=== PATIENT | female | born 1950 | race Caucasian/White ===

== ENCOUNTER 2016-11-13 09:55 | Inpatient (IN) | payer MEDICARE, BC ==
[2016-11-13] VITALS (14 sets, daily range): BP systolic 128–202; BP diastolic 61–111; PULSE 0–92; RESP 13–24; TEMP 98.2–98.4; O2SAT 97–100
[~2016-11-13] VITALS: Ht 167.6 cm; Wt 68.0 kg
[2016-11-13 10:18] LABS: AUTOMATED NEUTROPHIL # 6.5 TH/MM3 (1.8-7.7); BASOPHIL # 0.1 TH/MM3 (0-0.2); BASOPHIL % 1.4 % (0.0-2.0); EOSINOPHIL # 0.1 TH/MM3 (0-0.4); EOSINOPHIL % 0.8 % (0.0-4.0); HEMATOCRIT 35.9 % (35.0-46.0); HEMO FLAGS DIFF FINAL; LYMPH % 29.3 % (9.0-44.0); LYMPHOCYTE # 3.1 TH/MM3 (1.0-4.8); MEAN CELL VOLUME 92.3 FL (80.0-100.0); MEAN CORPUSCULAR HGB CONC 33.5 % (32.0-36.0); MONO % 5.8 % (0.0-8.0); NEUT % 62.7 % (16.0-70.0); PLATELET COUNT 314 TH/MM3 (150-450); RED BLOOD COUNT 3.89 MIL/MM3 (4.00-5.30); RED CELL DISTRIBUTION WIDTH 13.1 % (11.6-17.2); WHITE BLOOD COUNT 10.4 TH/MM3 (4.0-11.0)
[2016-11-13] MEDS ORDERED: ZANT150T2 PO (10:20)
[2016-11-13] MEDS ORDERED: ASPI81CH37 CHEW (10:20)
[2016-11-13 10:28] LABS: CHLORIDE 107 MEQ/L (98-107); POTASSIUM 3.7 MEQ/L (3.5-5.1); SODIUM (NA) 140 MEQ/L (136-145)
[2016-11-13] MEDS ORDERED: niCARdipine INJ 25 MG in SODIUM CHLOR 0.9% 250 ML INJ 240 ML IV ONE (10:30)
[2016-11-13 10:32] LABS: ANION GAP 8 MEQ/L (5-15); APTT (PATIENT) 26.4 SEC (24.3-30.1); BICARBONATE 25.4 MEQ/L (21.0-32.0); BLOOD UREA NITROGEN 15 MG/DL (7-18)
--- NOTE | 2016-11-13 10:34 | RADRPT ---
EXAM DATE/TIME: 11/13/2016 10:13 [facility] COMPARISON: No previous studies available for comparison. INDICATIONS : Numbness, face left arm, and throat. RADIATION DOSE: 64.14 CTDIvol (mGy) MEDICAL HISTORY : None SURGICAL HISTORY : None. ENCOUNTER: Initial ACUITY: 4 - 6 days PAIN SCALE: 0/10 LOCATION: cranial TECHNIQUE: Multiple contiguous axial images were obtained of the head. Using automated exposure control and adj ustment of the mA and/or kV according to patient size, radiation dose was kept as low as reasonably a chievable to obtain optimal diagnostic quality images. DICOM format image data is available electro nically for review and comparison. FINDINGS: The examination demonstrates a focal area of acute intraparenchymal hemorrhage involving the watershe d distribution of the right frontal lobe. There is surrounding edema. There is minimal mass effect. The ventricles are normal in size and configuration. No extra-axial hemorrhage is seen. The appearance of the posterior fossa is unremarkable. The osseous structures of the skull are intact. CONCLUSION: 1. Focal area of acute intraparenchymal hemorrhage in the right frontal lobe measuring 1.3 x 1.4 cm. There is surrounding vasogenic edema. MRI imaging of the brain with contrast is warranted to exclude an underlying mass. Fabricio Lara MD on November 13, 2016 at 10:31 Board Certified Radiologist. This report was verified electronically.
[2016-11-13 10:35] LABS: ALT (GPT) 32 U/L (10-53); AST (GOT) 20 U/L (15-37); GLOMERULAR FILTRATION RATE 55 ML/MIN (>89)
[2016-11-13 10:36] LABS: INDIRECT BILIRUBIN 0.2 MG/DL (0.0-0.8); TOTAL BILIRUBIN ADULT 0.3 MG/DL (0.2-1.0)
[2016-11-13 10:38] LABS: ALKALINE PHOSPHATASE 95 U/L (45-117)
[2016-11-13 10:52] LABS: CREATINE KINASE 65 U/L (26-192)
--- NOTE | 2016-11-13 10:52 | PD ---
HPI Chief Complaint: Numbness/Tingling Time Seen by Provider: 10:01 Travel History International Travel<30 days: No Contact w/Intl Traveler<30days: No Traveled to known affect area: No History of Present Illness HPI Patient is a 66 year old female who comes in complaining of numbness to her left arm and the right side of her mouth and neck. She says this started about 20 minutes prior to arrival. She says this happened Tuesday and she went to see her PMD who told her she was likely having a TIA and ordered some outpatient testing for her. She says when it happened again this morning, she was concerned because her neck felt numb, which was different. She denies feeling any weakness. She denies any symptoms in her legs. She does not take any blood thinners. She denies any recent head trauma. She denies chest pain or SOB. PFSH Past Medical History Diminished Hearing: No GERD: Yes Influenza Vaccination: No ?: Not Past Surgical History Hysterectomy: Yes Social History Alcohol Use: Yes ([facility]) Tobacco Use: No Allergies-Medications (Allergen,Severity, Reaction): Coded Allergies: No Known Allergies (Unverified , 11/13/16) Reported Meds & Prescriptions Reported Meds & Active Scripts Active Reported Zantac (Ranitidine HCl) 150 Mg Tab 150 Mg PO BID Aspirin Low Dose (Aspirin) 81 Mg Chew 81 Mg CHEW DAILY Review of Systems Except as stated in HPI: all other systems reviewed are Neg General / Constitutional: No: Fever, Chills Eyes: No: Blurred Vision HENT: No: Headaches, Lightheadedness Cardiovascular: No: Chest Pain or Discomfort Respiratory: No: Shortness of Breath Gastrointestinal: No: Nausea, Vomiting Genitourinary: No: Dysuria Skin: No Rash, No Change in Pigmentation Neurologic: Positive: Paresthesia, Sensory Disturbance, No: Weakness Physical Exam Narrative GENERAL: Awake and alert, in no acute distress. SKIN: Focused skin assessment warm/dry. HEAD: Atraumatic. Normocephalic. EYES: Pupils equal and round and reactive. No scleral icterus. EOMI. ENT: Mucous membranes pink and moist. NECK: Trachea midline. No JVD. CARDIOVASCULAR: Regular rate and rhythm. No murmur appreciated. RESPIRATORY: No accessory muscle use. Clear to auscultation. Breath sounds equal bilaterally. GASTROINTESTINAL: Abdomen soft, non-tender, nondistended. Hepatic and splenic margins not palpable. MUSCULOSKELETAL: No obvious deformities. No clubbing. No cyanosis. No edema. NEUROLOGICAL: Awake and alert. No obvious cranial nerve deficits. Motor grossly within normal limits. Normal speech. Sensation intact. PSYCHIATRIC: Appropriate mood and affect; insight and judgment normal. Data Data Last Documented VS Vital Signs Date Time Temp Pulse Resp B/P (MAP) Pulse Ox O2 Delivery O2 Flow Rate FiO2 11/13/16 10:25 98.4 64 18 187/71 (109) Room Air 98 11/13/16 10:02 98 Orders Orders Prothrombin Time / Inr (Pt) (11/13/16 10:01) Act Partial Throm Time (Ptt) (11/13/16 10:01) Complete Blood Count With Diff (11/13/16 10:01) Basic Metabolic Panel (Bmp) (11/13/16 10:01) Creatine Kinase (Cpk) (11/13/16 10:01) Troponin I (11/13/16 10:01) Ua Includes Microscopic (11/13/16 10:01) Type And Screen (11/13/16 10:01) Ct Brain W/O Iv Contrast(Rout) (11/13/16 ) Chest, Single Ap (11/13/16 ) Electrocardiogram (11/13/16 ) Blood Glucose (11/13/16 10:01) Ecg Monitoring (11/13/16 10:01) Iv Access Insert/Monitor (11/13/16 10:01) Oximetry (11/13/16 10:01) Hepatic Functional Panel (11/13/16 10:01) Nicardipine Inj (Cardene Inj) (11/13/16 10:30) Labs Laboratory Tests Test 11/13/16 10:00 White Blood Count 10.4 TH/MM3 Red Blood Count 3.89 MIL/MM3 Hemoglobin 12.0 GM/DL Hematocrit 35.9 % Mean Corpuscular Volume 92.3 FL Mean Corpuscular Hemoglobin 31.0 PG Mean Corpuscular Hemoglobin Concent 33.5 % Red Cell Distribution Width 13.1 % Platelet Count 314 TH/MM3 Mean Platelet Volume 8.2 FL Neutrophils (%) (Auto) 62.7 % Lymphocytes (%) (Auto) 29.3 % Monocytes (%) (Auto) 5.8 % Eosinophils (%) (Auto) 0.8 % Basophils (%) (Auto) 1.4 % Neutrophils # (Auto) 6.5 TH/MM3 Lymphocytes # (Auto) 3.1 TH/MM3 Monocytes # (Auto) 0.6 TH/MM3 Eosinophils # (Auto) 0.1 TH/MM3 Basophils # (Auto) 0.1 TH/MM3 CBC Comment DIFF FINAL Differential Comment Prothrombin Time 11.0 SEC Prothromb Time International Ratio 1.0 RATIO Activated Partial Thromboplast Time 26.4 SEC Blood Urea Nitrogen 15 MG/DL Creatinine 1.00 MG/DL Random Glucose 104 MG/DL Total Protein 7.6 GM/DL Albumin 3.5 GM/DL Calcium Level 8.3 MG/DL Aspartate Amino Transf (AST/SGOT) 20 U/L Alanine Aminotransferase (ALT/SGPT) 32 U/L Total Bilirubin 0.3 MG/DL Direct Bilirubin 0.1 MG/DL Sodium Level 140 MEQ/L Potassium Level 3.7 MEQ/L Chloride Level 107 MEQ/L Carbon Dioxide Level 25.4 MEQ/L Anion Gap 8 MEQ/L Estimat Glomerular Filtration Rate 55 ML/MIN Indirect Bilirubin 0.2 MG/DL [facility] Medical Decision Making Medical Screen Exam Complete: Yes Emergency Medical Condition: Yes Medical Record Reviewed: Yes Interpretation(s) ECG shows NSR at [address] elevation or depression, normal intervals. Differential Diagnosis TIA vs migraine vs electrolyte abnormalities vs ICH Narrative Course Patient is a 66 year old female who comes in complaining of numbness to the left side of her face and arm. At the time of exam, her symptoms have resolved , no abnormalities seen on neurologic exam. IV established, labs sent. CT head performed shows an intraparenchymal bleed with surrounding edema in the right frontal lobe. Patient started on Nicardipine drip for blood pressure control. She is still alert, oriented, without deficit. Dr. Fagan from neurology consulted, suggests BP control, NSGY consult and transfer to the [facility]. Dr. Rivera from NSGY consulted. Patient to be admitted to ICU at the [facility]. Diagnosis Primary Impression: Intraparenchymal hemorrhage of brain Admitting Information Admitting Physician Requests: Admit Condition: Stable Nupur Meraz MD Nov 13, 2016 10:52
[2016-11-13 10:53] LABS: BLOOD, URINE SMALL (NEG); GLUCOSE,URINE NEG (NEG); KETONE, URINE NEG (NEG); NITRITE,URINE NEG (NEG)
[2016-11-13] MEDS ORDERED: DEXTROSE 50% IN WATER 50 ML VIAL(D50) IV PUSH PRN (11:00)
[2016-11-13] MEDS ORDERED: POTASSIUM PHOSPHATE MONOBASIC 500 MG TAB PO/TUBE PRN (11:00)
[2016-11-13] MEDS ORDERED: POTASSIUM CHLOR 20 MEQ PREMIX 100 ML IV PRN ×2 (11:00)
[2016-11-13] MEDS ORDERED: LABETALOL HCL 100 MG/20 ML VIAL IV PUSH PRN ×2 (11:00→17:00)
[2016-11-13] MEDS ORDERED: hydrALAZINE HCL 20 MG/ML VIAL IV PUSH PRN (11:00)
[2016-11-13] MEDS ORDERED: POTASSIUM PHOSPHATE MONOBASIC 500 MG TAB PO PRN (11:00)
[2016-11-13] MEDS ORDERED: LACTULOSE SYRUP 20 GM/30 ML CUP PO PRN (11:00)
[2016-11-13] MEDS ORDERED: MAGNESIUM SULFATE INJ 4 GM in SODIUM CHLORIDE 0.9% INJ 92 ML IV PRN (11:00)
[2016-11-13] MEDS ORDERED: MISCELLANEOUS NURSING INFORMATION XX SCH (11:00)
[2016-11-13] MEDS ORDERED: POTASSIUM CHLOR 40 MEQ PREMIX 100 ML IV PRN ×2 (11:00)
[2016-11-13] MEDS ORDERED: MAGNESIUM HYDROXIDE SUSP 30 ML CUP PO PRN (11:00)
[2016-11-13] MEDS ORDERED: MAGNESIUM OXIDE 400 MG TAB PO PRN (11:00)
[2016-11-13] MEDS ORDERED: CHLORHEXIDINE GLUCONATE 2 % 1 PACK (2 CLOTHS) TOP PRN (11:00)
[2016-11-13] MEDS ORDERED: MAGNESIUM SULFATE INJ 2 GM in SODIUM CHLORIDE 0.9% INJ 96 ML IV PRN (11:00)
[2016-11-13] MEDS ORDERED: BISACODYL 10 MG SUPP RECTAL PRN (11:00)
[2016-11-13] MEDS ORDERED: ACETAMINOPHEN 325 MG TAB PO PRN (11:00)
[2016-11-13] MEDS ORDERED: SODIUM PHOSPHATE INJ 30 MMOL in SODIUM CHLOR 0.9% 250 ML INJ 240 ML IV PRN (11:00)
[2016-11-13] MEDS ORDERED: ONDANSETRON HCL 4 MG/2 ML VIAL IV PUSH PRN (11:00)
[2016-11-13] MEDS ORDERED: RESP: ALBUTEROL 2.5 MG/IPRATROPIUM 0.5 MG NEB (PRN) INH (11:00)
[2016-11-13] MEDS ORDERED: POTASSIUM PHOSPHATE INJ 30 MMOL in SODIUM CHLOR 0.9% 250 ML INJ 250 ML IV PRN (11:00)
[2016-11-13] MEDS ORDERED: SENNOSIDES 8.6 MG TAB PO PRN (11:00)
[2016-11-13] MEDS ORDERED: SODIUM CHLORIDE 0.9% FLUSH 10 ML FLUSH IV FLUSH PRN (11:00)
--- NOTE | 2016-11-13 11:02 | RADRPT ---
EXAM DATE/TIME: 11/13/2016 10:46 [facility] COMPARISON: No previous studies available for comparison. INDICATIONS : Left side arm, face, and neck numbness, cough MEDICAL HISTORY : None. SURGICAL HISTORY : None. ENCOUNTER: Initial ACUITY: 1 day PAIN SCORE: 0/10 LOCATION: Bilateral chest FINDINGS: The heart is normal in size. There are chronic appearing interstitial changes in the lung bases. The lungs are otherwise clear. The visualized bony structures are grossly intact. CONCLUSION: 1. Chronic interstitial changes in the lung bases. 2. No acute abnormality identified. Fabricio Lara MD on November 13, 2016 at 11:00 Board Certified Radiologist. This report was verified electronically.
[2016-11-13 11:10] LABS: METHOD OF COLLECTION CATH; URINE COLOR STRAW (YELLW/STRAW)
[2016-11-13 11:11] LABS: SQUAMOUS EPITHELIAL CELL URINE 0-5 /hpf (0-5); WBC, URINE 0-2 /hpf (0-5)
[2016-11-13] MEDS: INSULIN NovoLIN REGULAR SUPPLEMENTAL SCALE SQ SCH ×2 (11:52→18:00)
[2016-11-13] MEDS: SODIUM CHLOR 0.9% 1000 ML INJ 1,000 ML IV SCH (12:49)
--- NOTE | 2016-11-13 14:18 | EKG ---
Date Performed: 11/13/2016 Time Performed: 10:06:11 PTAGE: 66 years EKG: Sinus rhythm NORMAL ECG NO PREVIOUS TRACING DOCTOR: Meng Atkins Interpretating Date/Time 11/13/2016 14:14:28
[2016-11-13] MEDS ORDERED: GADODIAMIDE PF 287 MG/ML 5 ML VIAL (for RAD MRI) IVCONTRAST ONE (16:17)
--- NOTE | 2016-11-13 16:30 | RADRPT ---
EXAM DATE/TIME: 11/13/2016 15:42 [facility] COMPARISON: CT BRAIN W/O CONTRAST, November 13, 2016, 10:13. INDICATIONS : Hemorrhage. CONTRAST: 14 cc Omniscan (gadodiamide) IV MEDICAL HISTORY : Carcinoma, ovarian. Hypertension. SURGICAL HISTORY : Hysterectomy. Umbilical hernia repair. Orthopaedic. ENCOUNTER: Initial ACUITY: 1 day PAIN SCORE: 0/10 LOCATION: cranial TECHNIQUE: Multiplanar, multisequence MRI of the brain was performed both prior to and following the administrat ion of paramagnetic contrast. FINDINGS: Diffusion weighted images demonstrate no evidence for acute infarction. There is an area of foca l decreased T2/increased T1 signal in the right frontal lobe on axial image 15 measuring 1.5 x 1.6 cm in AP and transverse dimension, with a surrounding area of high T2 signal and decreased T1 signal no chhaya consistent with edema. This is consistent with a focal intraparenchymal hemorrhage. Following int ravenous contrast administration, there is no appreciable internal enhancement to suggest a vascular mass. There is a small amount of subarachnoid hemorrhage along the right for total convexity. CONCLUSION: Right frontal hematoma with a small amount of surrounding edema and subarachnoid hemorrhage. Omar Reno MD on November 13, 2016 at 16:25 Board Certified Radiologist. This report was verified electronically.
--- NOTE | 2016-11-13 16:47 | HHI.HP ---
[facility] Service Critical Care Medicine Primary Care Physician Fab Reynolds MD Admission Diagnosis Intraparenchymal bleed Diagnosis: Chief Complaint: Numbness left deltoid region. Travel History International Travel<30 Days: No Contact w/Intl Traveler <30 Da: No Traveled to Known Affected Are: No History of Present Illness 66 y/o otherwise healthy woman developed numbness over the left deltoid region about 4 days ago which resolved after about 30 mins. She was prescribed ASA and scheduled for studies. Her PMD felt this was a TIA and it sure sounds like one. The symptoms have recurred daily and she underwent a Head CT today at [facility] revealing a well circumscribed right frontal lobe hemorrhage with surrounding vasogenic edema. She was transported to [facility] for MRI and admission. I met her on her arrival to the [facility]. Review of Systems Constitutional: DENIES: Diaphoretic episodes, Fatigue, Fever, Weight gain, Weight loss, Chills, Dizziness, Change in appetite, Night Sweats Endocrine: DENIES: Abnorml menstrual pattern, Heat/cold intolerance, Polydipsia , Polyuria, Polyphagia Eyes: DENIES: Blurred vision, Diplopia, Eye inflammation, Eye pain, Vision loss , Photosensitivity, Double Vision Ears, nose, mouth, throat: DENIES: Tinnitus, Hearing loss, Vertigo, Nasal discharge, Oral lesions, Throat pain, Hoarseness, Ear Pain, Running Nose, Epistaxis, Sinus Pain, Toothache, Odynophagia Respiratory: DENIES: Apneas, Cough, Snoring, Wheezing, Hemoptysis, Sputum production, Shortness of breath Cardiovascular: DENIES: Chest pain, Palpitations, Syncope, Dyspnea on Exertion , PND, Lower Extremity Edema, Orthopnea, Claudication Musculoskeletal: DENIES: Joint pain, Muscle aches, Stiffness, Joint Swelling, Back pain, Neck pain Integumentary: DENIES: Abnormal pigmentation, Pruritus, Rash, Nail changes, Breast masses, Breast skin changes, Nipple discharge Immunologic/allergic: DENIES: Eczema, Urticaria Neurologic: COMPLAINS OF: Localized weakness Psychiatric: DENIES: Anxiety, Confusion, Mood changes, Depression, Hallucinations, Agitation, Suicidal Ideation, Homicidal Ideation, Delusions Past Family Social History Allergies: Coded Allergies: No Known Allergies (Unverified , 11/13/16) Past Medical History Past Medical History Diminished Hearing: No GERD: Yes Influenza Vaccination: No ?: Not Past Surgical History Hysterectomy: Yes Social History Alcohol Use: Yes (occ) Tobacco Use: No Allergies-Medications Allergies-Medications (Allergen,Severity, Reaction): Coded Allergies: No Known Allergies (Unverified , 11/13/16) Reported Meds & Prescriptions Reported Meds & Active Scripts Active Reported Zantac (Ranitidine HCl) 150 Mg Tab 150 Mg PO BID Aspirin Low Dose (Aspirin) 81 Mg Chew 81 Mg CHEW DAILY Physical Exam Vital Signs Vital Signs Date Time Temp Pulse Resp B/P (MAP) Pulse Ox O2 Delivery O2 Flow Rate FiO2 11/13/16 14:01 78 151/69 11/13/16 14:00 100 Room Air 11/13/16 14:00 85 11/13/16 14:00 98.3 85 13 171/88 (115) 100 11/13/16 13:18 11/13/16 13:08 90 18 140/65 (90) 98 Room Air 11/13/16 12:23 79 18 137/61 (86) 98 11/13/16 12:14 177/81 (113) 11/13/16 11:59 79 18 163/72 (102) 98 Room Air 11/13/16 11:30 169/111 (130) 11/13/16 11:15 163/86 (111) 11/13/16 11:00 187/84 (118) 11/13/16 10:30 76 178/88 11/13/16 10:25 98.4 64 18 187/71 (109) Room Air 98 11/13/16 10:02 80 18 202/107 (138) 98 Physical Exam Gen: Healthy appearing woman Head: Atraumatic. Neck: Supple, airway widely patent. Lungs: Clear, no adventitious sounds. Heart: NL S1S2, RRR. No JVD. Abdomen: Benign, soft, no guarding, BS active. Extremities: Warm, well perfused. Neuro: O X 3, alert, cooperative. Speech clear. Right handed. Motor grossly normal 4 limbs. Numb to soft touch left lateral neck. ALBARO. Tongue protrusion midline. EOMs intact. Smile, grimace symmetrical. Shoulder shrug symmetrical. Laboratory Laboratory Tests Test 11/13/16 10:00 11/13/16 10:40 White Blood Count 10.4 Red Blood Count 3.89 Hemoglobin 12.0 Hematocrit 35.9 Mean Corpuscular Volume 92.3 Mean Corpuscular Hemoglobin 31.0 Mean Corpuscular Hemoglobin Concent 33.5 Red Cell Distribution Width 13.1 Platelet Count 314 Mean Platelet Volume 8.2 Neutrophils (%) (Auto) 62.7 Lymphocytes (%) (Auto) 29.3 Monocytes (%) (Auto) 5.8 Eosinophils (%) (Auto) 0.8 Basophils (%) (Auto) 1.4 Neutrophils # (Auto) 6.5 Lymphocytes # (Auto) 3.1 Monocytes # (Auto) 0.6 Eosinophils # (Auto) 0.1 Basophils # (Auto) 0.1 CBC Comment DIFF FINAL Differential Comment Prothrombin Time 11.0 Prothromb Time International Ratio 1.0 Activated Partial Thromboplast Time 26.4 Blood Urea Nitrogen 15 Creatinine 1.00 Random Glucose 104 Total Protein 7.6 Albumin 3.5 Calcium Level 8.3 Alkaline Phosphatase 95 Aspartate Amino Transf (AST/SGOT) 20 Alanine Aminotransferase (ALT/SGPT) 32 Total Bilirubin 0.3 Direct Bilirubin 0.1 Sodium Level 140 Potassium Level 3.7 Chloride Level 107 Carbon Dioxide Level 25.4 Anion Gap 8 Estimat Glomerular Filtration Rate 55 Indirect Bilirubin 0.2 Total Creatine Kinase 65 Troponin I LESS THAN 0.02 Urine Collection Type CATH Urine Color STRAW Urine Turbidity CLEAR Urine pH 6.0 Urine Specific [place] 1.005 Urine Protein NEG Urine Glucose (UA) NEG Urine Ketones NEG Urine Occult Blood SMALL Urine Nitrite NEG Urine Bilirubin NEG Urine Leukocyte Esterase TRACE Urine WBC 0-2 Urine Squamous Epithelial Cells 0-5 Result Diagram: 11/13/16 1000 11/13/16 1000 Caprini VTE Risk Assessment Caprini VTE Risk Assessment: Mod/High Risk (score >= 2) Caprini Risk Assessment Model Point Value = 1 Point Value = 2 Point Value = 3 Point Value = 5 Age 41-60 Minor surgery BMI > 25 kg/m2 Swollen legs Varicose veins or History of unexplained or recurrent spontaneous Oral contraceptives or hormone replacement Sepsis (< 1 month) Serious lung disease, including pneumonia (< 1 month) Abnormal pulmonary function Acute myocardial infarction Congestive heart failure (< 1 month) History of inflammatory bowel disease Medical patient at bed rest Age 61-74 Arthroscopic surgery Major open surgery (> 45 min) Laparoscopic surgery (> 45 min) Malignancy Confined to bed (> 72 hours) Immobilizing plaster cast Central venous access Age >= 75 History of VTE Family history of VTE Factor V Leiden Prothrombin [id number] Lupus anticoagulant Anticardiolipin antibodies Elevated serum homocysteine Heparin-induced thrombocytopenia Other congenital or acquired thrombophilia Stroke (< 1 month) Elective arthroplasty Hip, pelvis, or leg fracture Acute spinal cord injury (< 1 month) Prophylaxis Regimen Total Risk Factor Score Risk Level Prophylaxis Regimen 0-1 Low Early ambulation 2 Moderate Order ONE of the following: *Sequential Compression Device (SCD) *Heparin 5000 units SQ BID 3-4 Higher Order ONE of the following medications: *Heparin 5000 units SQ TID *Enoxaparin/Lovenox 40 mg SQ daily (WT < 150 kg, CrCl > 30 mL/min) *Enoxaparin/Lovenox 30 mg SQ daily (WT < 150 kg, CrCl > 10-29 mL/min) *Enoxaparin/Lovenox 30 mg SQ BID (WT < 150 kg, CrCl > 30 mL/min) AND/OR *Sequential Compression Device (SCD) 5 or more Highest Order ONE of the following medications: *Heparin 5000 units SQ TID (Preferred with Epidurals) *Enoxaparin/Lovenox 40 mg SQ daily (WT < 150 kg, CrCl > 30 mL/min) *Enoxaparin/Lovenox 30 mg SQ daily (WT < 150 kg, CrCl > 10-29 mL/min) *Enoxaparin/Lovenox 30 mg SQ BID (WT < 150 kg, CrCl > 30 mL/min) AND *Sequential Compression Device (SCD) Assessment and Plan Assessment and Plan Assessment: 1. Stuttering pattern of decreased sensation left arm. 2. 1.5 X 1.5 CM hemorrhage right frontal lobe. 3.Hypertension. Plan: 1. BP control with cardene and iv labetalol. 2. Start low dose lopressor PO scheduled. 3. No chemical DVT px. 4. SCDs. 5. Neuro checks. 6. Check Mag. 7. Neurosurgery consult. Overall impression: Right frontal lobe hemorrhage, well circumscribed, with surrounding vasogenic edema. Sherman Call MD Nov 13, 2016 16:47
[2016-11-13] MEDS: hydrALAZINE HCL 20 MG/ML VIAL IV PUSH PRN (17:25)
--- NOTE | 2016-11-13 17:49 | PD.CONS ---
History of Present Illness Service Neurosurgery Consult Requested By Emergency room-Dr. Nupur Meraz Reason for Consult Intracranial hemorrhage Primary Care Physician Fab Reynolds MD Diagnoses: History of Present Illness Pleasant 66-year-old female presented to the emergency room today with complaint of left facial and upper extremity numbness which started approximately 20 minutes prior to her arrival in the emergency room. She had a similar event this past Tuesday involving the left upper extremity, and was seen by her primary care physician who diagnosed possible TIA and ordered additional outpatient studies. The has no complaint of significant headache, blurred vision, diplopia, speech difficulty, confusion, memory loss. No pain weakness numbness paresthesias in the right upper or lower extremity. No dizziness or vertigo. No nausea or vomiting. Review of Systems Constitutional: DENIES: Fever, Dizziness Eyes: DENIES: Blurred vision, Diplopia Ears, nose, mouth, throat: DENIES: Vertigo Respiratory: DENIES: Shortness of breath Cardiovascular: DENIES: Chest pain, Palpitations Gastrointestinal: COMPLAINS OF: Nausea, DENIES: Abdominal pain, Vomiting Musculoskeletal: DENIES: Joint pain, Muscle aches, Neck pain Hematologic/lymphatic: DENIES: Bruising Neurologic: COMPLAINS OF: Paresthesias, DENIES: Abnormal gait, Headache, Speech Problems Psychiatric: DENIES: Anxiety, Confusion Past Family Social History Allergies: Coded Allergies: No Known Allergies (Unverified , 11/13/16) Past Medical History No history of significant cardiac, pulmonary, gastrointestinal disease, diabetes History of uterine cancer She states that her primary care physician has been considering placing her on an antihypertensive medication Positive GERD Past Surgical History Hysterectomy, oophorectomy related to uterine cancer. Multiple distal lower extremity surgeries related to trauma Reported Medications Reported Meds & Active Scripts Active Reported Zantac (Ranitidine HCl) 150 Mg Tab 150 Mg PO BID Aspirin Low Dose (Aspirin) 81 Mg Chew 81 Mg CHEW DAILY Family History History of cardiac disease and stroke in the family. No cancer or diabetes Social History Previous cigarette smoker, none recently. Infrequent alcohol Physical Exam Vital Signs Vital Signs Date Time Temp Pulse Resp B/P (MAP) Pulse Ox O2 Delivery O2 Flow Rate FiO2 11/13/16 16:00 98.2 71 18 147/72 (97) 100 11/13/16 16:00 71 11/13/16 14:01 78 151/69 11/13/16 14:00 100 Room Air 11/13/16 14:00 85 11/13/16 14:00 98.3 85 13 171/88 (115) 100 11/13/16 13:18 11/13/16 13:08 90 18 140/65 (90) 98 Room Air 11/13/16 12:23 79 18 137/61 (86) 98 11/13/16 12:14 177/81 (113) 11/13/16 11:59 79 18 163/72 (102) 98 Room Air 11/13/16 11:30 169/111 (130) 11/13/16 11:15 163/86 (111) 11/13/16 11:00 187/84 (118) 11/13/16 10:30 76 178/88 11/13/16 10:25 98.4 64 18 187/71 (109) Room Air 98 11/13/16 10:02 80 18 202/107 (138) 98 Physical Exam GENERAL: This is a well-nourished, well-developed patient, no apparent distress. SKIN: No abrasions, contusion, rash noted. Skin warm and dry. HEAD: Atraumatic. Normocephalic. No temporal or scalp tenderness. EYES: Sclerae are clear and nonicteric ENT: No facial edema or ecchymosis. No periorbital edema. No CSF otorrhea or rhinorrhea. No palpable facial fracture or deformity. NECK: Trachea midline. No cervical spine tenderness. CARDIOVASCULAR: Regular rate and rhythm without murmurs, gallops, or rubs. RESPIRATORY: Clear to auscultation. Breath sounds equal bilaterally. No wheezes , rales, or rhonchi. GASTROINTESTINAL: Abdomen soft, non-tender, nondistended. No hepato-splenomegaly , or palpable masses. No guarding. MUSCULOSKELETAL: Extremities without cyanosis, or edema. No joint tenderness, or edema noted. No calf tenderness. Dorsalis pedis pulses 2+ bilateral NEUROLOGICAL: Awake and alert Oriented X 3 Speech is clear Conversant and appropriate Follow simple commands well Answers questions appropriately Reasonable judgment and insight Recent and remote memory are intact No evidence of anxiety or depression Pupils are equal and reactive to accommodation. Extra-ocular movements, visual baker to confrontation, facial sensorimotor, tongue, palate, sternocleidomastoid testing, hearing to finger rub testing, and bilateral shoulder shrug are all intact. Sensation is intact to light touch in all extremities Strength normal major flexion and extension groups all extremities Laura's absent bilaterally No ankle clonus Plantar responses absent bilateral Fine motor movements intact upper extremities Laboratory Laboratory Tests Test 11/13/16 10:00 11/13/16 10:40 White Blood Count 10.4 Red Blood Count 3.89 Hemoglobin 12.0 Hematocrit 35.9 Mean Corpuscular Volume 92.3 Mean Corpuscular Hemoglobin 31.0 Mean Corpuscular Hemoglobin Concent 33.5 Red Cell Distribution Width 13.1 Platelet Count 314 Mean Platelet Volume 8.2 Neutrophils (%) (Auto) 62.7 Lymphocytes (%) (Auto) 29.3 Monocytes (%) (Auto) 5.8 Eosinophils (%) (Auto) 0.8 Basophils (%) (Auto) 1.4 Neutrophils # (Auto) 6.5 Lymphocytes # (Auto) 3.1 Monocytes # (Auto) 0.6 Eosinophils # (Auto) 0.1 Basophils # (Auto) 0.1 CBC Comment DIFF FINAL Differential Comment Prothrombin Time 11.0 Prothromb Time International Ratio 1.0 Activated Partial Thromboplast Time 26.4 Blood Urea Nitrogen 15 Creatinine 1.00 Random Glucose 104 Total Protein 7.6 Albumin 3.5 Calcium Level 8.3 Alkaline Phosphatase 95 Aspartate Amino Transf (AST/SGOT) 20 Alanine Aminotransferase (ALT/SGPT) 32 Total Bilirubin 0.3 Direct Bilirubin 0.1 Sodium Level 140 Potassium Level 3.7 Chloride Level 107 Carbon Dioxide Level 25.4 Anion Gap 8 Estimat Glomerular Filtration Rate 55 Indirect Bilirubin 0.2 Total Creatine Kinase 65 Troponin I LESS THAN 0.02 Urine Collection Type CATH Urine Color STRAW Urine Turbidity CLEAR Urine pH 6.0 Urine Specific [place] 1.005 Urine Protein NEG Urine Glucose (UA) NEG Urine Ketones NEG Urine Occult Blood SMALL Urine Nitrite NEG Urine Bilirubin NEG Urine Leukocyte Esterase TRACE Urine WBC 0-2 Urine Squamous Epithelial Cells 0-5 Result Diagram: 11/13/16 1000 11/13/16 1000 Imaging 11/13/16 CT scan head and MRI brain images are reviewed by the undersigned. The studies reveal findings consistent with a approximately 12 x 15 right frontal parenchymal intracranial hemorrhage with mild mass effect in the frontoparietal region. Head CT 11/13/16 0000 Signed Impressions: Service Date/Time: Sunday, November 13, 2016 10:13 - CONCLUSION: 1. Focal area of acute intraparenchymal hemorrhage in the right frontal lobe measuring 1.3 x 1.4 cm. There is surrounding vasogenic edema. MRI imaging of the brain with contrast is warranted to exclude an underlying mass. Fabricio Lara MD Chest X-Ray 11/13/16 0000 Signed Impressions: Service Date/Time: Sunday, November 13, 2016 10:46 - CONCLUSION: 1. Chronic interstitial changes in the lung bases. 2. No acute abnormality identified. Fabricio Lara MD Brain MRI 11/13/16 0000 Signed Impressions: Service Date/Time: Sunday, November 13, 2016 15:42 - CONCLUSION: Right frontal hematoma with a small amount of surrounding edema and subarachnoid hemorrhage. Omar Reno MD Assessment and Plan Assessment and Plan Impression: 1. Localized right frontal spontaneous intracranial hemorrhage. Small amount of right frontoparietal subarachnoid hemorrhage. Likely hypertensive in etiology 2. Hypertension 3. History of GERD Recommendations: Findings were discussed at length with the patient in the intensive surgical care unit. She is on Cardene drip as needed for blood pressure control. Continuing conservative treatment and observation for the frontal intracranial hemorrhage. Follow-up CT scan head on 11/14/16 Non-chemical DVT prophylaxis Ulcer prophylaxis Ramsey Rivera MD Nov 13, 2016 17:49
[2016-11-13] MEDS: METOPROLOL TARTRATE 25 MG TAB PO SCH (20:21)
[2016-11-13] MEDS: SODIUM CHLORIDE 0.9% FLUSH 10 ML FLUSH IV FLUSH SCH (20:21)
[2016-11-13] MEDS: FAMOTIDINE 20 MG/2 ML VIAL IV PUSH SCH (20:21)
[2016-11-13] MEDS: DOCUSATE SODIUM 50 MG/SENNA 8.6 MG TAB PO SCH (20:21)
[2016-11-13] MEDS ORDERED: ALUMINUM/MAGNESIUM/SIMETH 30 ML CUP PO PRN (22:15)
[2016-11-14] VITALS (11 sets, daily range): BP systolic 108–166; BP diastolic 54–289; PULSE 54–81; RESP 14–20; TEMP 97.8–98.3; O2SAT 94–98
[2016-11-14] MEDS: SODIUM CHLOR 0.9% 1000 ML INJ 1,000 ML IV SCH ×2 (03:02→23:29)
[2016-11-14] MEDS: CHLORHEXIDINE GLUCONATE 2 % 1 PACK (2 CLOTHS) TOP SCH (04:00)
[2016-11-14] MEDS: INSULIN NovoLIN REGULAR SUPPLEMENTAL SCALE SQ SCH ×4 (06:00→18:00)
[2016-11-14 06:10] LABS: MEAN CELL VOLUME 93.3 FL (80.0-100.0); MEAN CORPUSCULAR HEMOGLOBIN 31.2 PG (27.0-34.0); MEAN CORPUSCULAR HGB CONC 33.4 % (32.0-36.0); PLATELET COUNT 313 TH/MM3 (150-450); RED BLOOD COUNT 3.97 MIL/MM3 (4.00-5.30); RED CELL DISTRIBUTION WIDTH 14.4 % (11.6-17.2); REVIEW FLAG FINAL; WHITE BLOOD COUNT 9.7 TH/MM3 (4.0-11.0)
[2016-11-14 06:38] LABS: BICARBONATE 25.1 MEQ/L (21.0-32.0); POTASSIUM 3.9 MEQ/L (3.5-5.1)
[2016-11-14] MEDS: DOCUSATE SODIUM 50 MG/SENNA 8.6 MG TAB PO SCH ×2 (07:59→21:11)
[2016-11-14] MEDS: SODIUM CHLORIDE 0.9% FLUSH 10 ML FLUSH IV FLUSH SCH ×2 (07:59→21:12)
--- NOTE | 2016-11-14 08:55 | RADRPT ---
EXAM DATE/TIME: 11/14/2016 08:32 [place] COMPARISON: CT BRAIN W/O CONTRAST, November 13, 2016, 10:13. INDICATIONS : Left sided weakness. RADIATION DOSE: 42.43 CTDIvol (mGy) MEDICAL HISTORY : None SURGICAL HISTORY : Hysterectomy. Hernia repair. ENCOUNTER: Initial ACUITY: 1 day PAIN SCALE: 0/10 LOCATION: cranial TECHNIQUE: Multiple contiguous axial images were obtained of the head. Using automated exposure control and adj ustment of the mA and/or kV according to patient size, radiation dose was kept as low as reasonably a chievable to obtain optimal diagnostic quality images. DICOM format image data is available electro nically for review and comparison. FINDINGS: The examination demonstrates a focal area of intraparenchymal hemorrhage in the right frontal lobe me asuring approximately 1.4 cm. There is surrounding edema. This is similar in appearance to the previo us examination. The exam also demonstrates a subtle area of subarachnoid hemorrhage over the high rig ht convexities. This is similar to previous examination as well. No new areas of hemorrhage are identified. The ventricles are normal in size and configuration. The a ppearance of the posterior fossa is unremarkable. No acute skull fracture is seen. The sinuses appear clear. The visualized portion of orbit is intact. CONCLUSION: 1. Stable intraparenchymal and extra-axial hemorrhage compared to previous exam of 11/13/16. Fabricio Lara MD on November 14, 2016 at 8:50 Board Certified Radiologist. This report was verified electronically.
[2016-11-14] MEDS: hydrALAZINE HCL 20 MG/ML VIAL IV PUSH PRN (08:58)
[2016-11-14] MEDS: FAMOTIDINE 20 MG/2 ML VIAL IV PUSH SCH ×2 (08:58→21:12)
[2016-11-14] MEDS: METOPROLOL TARTRATE 25 MG TAB PO SCH ×2 (09:00→21:11)
--- NOTE | 2016-11-14 11:57 | HHI.CCPN ---
Subjective Remarks/Hospital Course 66 y/o otherwise healthy woman developed numbness over the left deltoid region about 4 days ago which resolved after about 30 mins. She was prescribed ASA and scheduled for studies. Her PMD felt this was a TIA and it sure sounds like one. The symptoms have recurred daily and she underwent a Head CT today at [facility] revealing a well circumscribed right frontal lobe hemorrhage with surrounding vasogenic edema. She was transported to [facility] for MRI and admission. I met her on her arrival to the [facility]. 11/14: Motor function grossly normal and symmetrical. CT Head bleed without increase in size - consensus is hypertensive etiology. Lopressor and lisinopril initiated. Objective Vital Signs Date Time Temp Pulse Resp B/P (MAP) Pulse Ox O2 Delivery O2 Flow Rate FiO2 11/14/16 10:00 81 11/14/16 08:00 97.8 18 141/77 (98) 97 11/14/16 07:00 Room Air 11/13/16 10:25 98 Intake and Output 11/14/16 11/14/16 11/15/16 08:00 16:00 00:00 Intake Total 120 ml Balance 120 ml Result Diagram: 11/14/16 0535 11/14/16 0535 Objective Remarks Gen: Healthy appearing woman Head: Atraumatic. Neck: Supple, airway widely patent. Lungs: Clear, no adventitious sounds. Heart: NL S1S2, RRR. No JVD. Abdomen: Benign, soft, no guarding, BS active. Extremities: Warm, well perfused. Neuro: O X 3, alert, cooperative. Speech clear. Right handed. Motor grossly normal 4 limbs. ALBARO. Tongue protrusion midline. EOMs intact. Smile, grimace symmetrical. Shoulder shrug symmetrical. A/P Assessment and Plan Assessment: 1. Stuttering pattern of decreased sensation left arm. 2. Small hypertensive hemorrhage right frontal lobe. 3.Hypertension. Plan: 1. BP control with cardene and iv labetalol, transition to oral meds. 2. Start low dose lopressor PO scheduled 11/13, add lisinopril 5 mg daily 11/14. 3. No chemical DVT px. 4. SCDs. 5. Neuro checks. 6. Check Mag. 7. Neurosurgery consult. Overall impression: Right frontal lobe hemorrhage, well circumscribed, with surrounding vasogenic edema. No change in size. Blood pressure control good. Sherman Call MD Nov 14, 2016 11:57
[2016-11-14] MEDS: LISINOPRIL 5 MG TAB PO SCH (12:18)
--- NOTE | 2016-11-14 14:20 | PD.CONS ---
History of Present Illness Service Neurology Consult Requested By er Reason for Consult stroke Primary Care Physician Fab Reynolds MD History of Present Illness 66 y/o f [place] [facility] [place] management of rt ich. seen at er for left sided numbness. takes aspirin daily. has had elevated bp and was suggested to take bp meds by pcp but states she was resistive. will take them now. she denies any carroll, cp, vision loss, hx of fall/trauma. feels well. repeat ct brain stable. Review of Systems as above and admit hp Past Family Social History Allergies: Coded Allergies: No Known Allergies (Unverified , 11/13/16) Past Medical History Past Medical History Diminished Hearing: No GERD: Yes Influenza Vaccination: No ?: Not Past Surgical History Hysterectomy: Yes Social History Alcohol Use: Yes (occ) Tobacco Use: No Allergies-Medications Allergies-Medications (Allergen,Severity, Reaction): Coded Allergies: No Known Allergies (Unverified , 11/13/16) Reported Meds & Prescriptions Reported Meds & Active Scripts Active Reported Zantac (Ranitidine HCl) 150 Mg Tab 150 Mg PO BID Aspirin Low Dose (Aspirin) 81 Mg Chew 81 Mg CHEW DAILY Review of Systems All other ROS: ROS reviewed as documented in chart Past Family Social History Allergies: Coded Allergies: No Known Allergies (Unverified , 11/13/16) Active Ordered Medications Current Medications Medications (Trade) Dose Ordered Sig/Ludmila Route Start Time Stop Time Status Last Admin (Mag-Ox) 800 mg UNSCH PRN PO 11/13/16 11:00 Magnesium Sulfate 4 gm/Sodium Chloride 100 ml @ 50 mls/hr UNSCH PRN IV 11/13/16 11:00 Magnesium Sulfate 2 gm/Sodium Chloride 100 ml @ 50 mls/hr UNSCH PRN IV 11/13/16 11:00 Potassium Chloride 100 ml @ 50 mls/hr Q2H PRN IV 11/13/16 11:00 Potassium Chloride 100 ml @ 50 mls/hr Q2H PRN IV 11/13/16 11:00 Potassium Chloride 100 ml @ 50 mls/hr Q2H PRN IV 11/13/16 11:00 Potassium Chloride 100 ml @ 25 mls/hr UNSCH PRN IV 11/13/16 11:00 (K-Phos) 2,000 mg Q4H PRN PO 11/13/16 11:00 (K-Phos) 2,000 mg UNSCH PRN PO/TUBE 11/13/16 11:00 Potassium Phosphate 30 mmol/ Sodium Chloride 260 ml @ 42 mls/hr UNSCH PRN IV 11/13/16 11:00 Sodium Phosphate 30 mmol/Sodium Chloride 250 ml @ 42 mls/hr UNSCH PRN IV 11/13/16 11:00 (D50w (Vial) Inj) 25 ml UNSCH PRN IV PUSH 11/13/16 11:00 (NovoLIN R SUPPLEMENTAL SCALE) 1 Q6HR SQ 11/13/16 12:00 Sodium Chloride 1,000 ml @ 50 mls/hr Q20H IV 11/13/16 11:00 11/13/16 12:49 (NS Flush) 2 ml UNSCH PRN IV FLUSH 11/13/16 11:00 (NS Flush) 2 ml BID IV FLUSH 11/13/16 21:00 11/14/16 07:59 (Tylenol) 650 mg Q6H PRN PO 11/13/16 11:00 11/13/16 16:52 (Pepcid Inj) 20 mg Q12HR IV PUSH 11/13/16 21:00 11/14/16 08:58 (Zofran Inj) 4 mg Q6H PRN IV PUSH 11/13/16 11:00 11/13/16 18:10 (Duoneb Neb) 1 ampule Q2HR NEB PRN INH 11/13/16 11:00 Miscellaneous Information 1 Q361D XX 11/13/16 11:00 11/13/16 11:00 (Chlorhexidine 2% Cloth) 3 pack Taper DAILY@04 TOP 11/14/16 04:00 11/10/17 03:59 (Chlorhexidine 2% Cloth) 3 pack UNSCH PRN TOP 11/13/16 11:00 (Patria-Colace) 1 tab BID PO 11/13/16 21:00 (Milk Of Magnesia Liq) 30 ml Q12H PRN PO 11/13/16 11:00 (Senokot) 17.2 mg Q12H PRN PO 11/13/16 11:00 (Dulcolax Supp) 10 mg DAILY PRN RECTAL 11/13/16 11:00 (Lactulose Liq) 30 ml DAILY PRN PO 11/13/16 11:00 (Apresoline Inj) 10 mg Q1H PRN IV PUSH 11/13/16 17:00 11/14/16 08:58 (Trandate Inj) 20 mg Q2H PRN IV PUSH 11/13/16 17:00 11/13/16 18:33 (Lopressor) 12.5 mg Q12HR PO 11/13/16 21:00 11/13/16 20:21 (Mag-Al Plus Susp Liq) 30 ml Q4H PRN PO 11/13/16 22:15 11/13/16 22:15 (Prinivil) 5 mg DAILY PO 11/14/16 12:30 11/14/16 12:18 Exam I&O / VS Vital Signs Date Time Temp Pulse Resp B/P (MAP) Pulse Ox O2 Delivery O2 Flow Rate FiO2 11/14/16 12:30 97 21 11/14/16 12:00 76 11/14/16 12:00 97.9 78 18 114/54 (74) 97 11/14/16 10:00 81 11/14/16 08:00 97.8 71 18 141/77 (98) 97 11/14/16 08:00 56 11/14/16 07:00 96 Room Air 11/14/16 06:00 54 11/14/16 04:00 58 11/14/16 04:00 97.8 59 17 126/289 (235) 95 11/14/16 02:00 58 11/14/16 00:00 98.3 58 14 108/54 (72) 94 11/14/16 00:00 58 11/13/16 22:00 74 11/13/16 20:00 74 11/13/16 20:00 98.2 74 24 128/71 (90) 97 11/13/16 19:00 97 Room Air 11/13/16 18:00 92 11/13/16 16:00 98.2 71 18 147/72 (97) 100 11/13/16 16:00 71 General: Alert and Oriented, No acute distress Eye: EOMI Respiratory: Non-labored respirations Cardiology: Normal rate Musculoskeletal: ROM Neurologic: Alert, Oriented, Normal sensory, CN II-XII intact Psychiatric: Cooperative, Appropriate mood & affect, Normal judgement Exam Comments ox 3, clear speech, sitting up in bed, looks well, mild left ue>le paresis 5-/ 5 with slight drift Review/Management Diagnosis/Plan: (1) Intraparenchymal hemorrhage of brain ICD Codes: I61.9 - Nontraumatic intracerebral hemorrhage, unspecified Status: Acute Plan: appears to have a spontaneous ich, likely related to chronic uncontrolled htn recs bp control p.t. in am hold antiplatelets neuro stable (2) HTN (hypertension) ICD Codes: I10 - Essential (primary) hypertension Status: Acute Problem Qualifiers (1) HTN (hypertension): Qualified Codes: I10 - Essential (primary) hypertension Dario Fagan MD Nov 14, 2016 14:20
[2016-11-14] MEDS ORDERED: hydrALAZINE HCL 50 MG TAB PO PRN (17:30)
[2016-11-14] MEDS: hydrALAZINE HCL 25 MG TAB PO SCH ×2 (18:24→21:11)
--- NOTE | 2016-11-14 18:36 | HHI.NSPN ---
History Chief Complaint: no complaint of headache dizziness Interval History 66-year-old female with complaint of left facial and upper extremity numbness and paresthesias with previous similar episode in the upper extremities a few days ago. Initial CT scan with focal right frontoparietal parenchymal intracranial hemorrhage with mild right parietal subarachnoid hemorrhage. 11/14/16: Follow-up CT scan had stable. Patient asymptomatic Exam Results Vital Signs Date Time Temp Pulse Resp B/P (MAP) Pulse Ox O2 Delivery O2 Flow Rate FiO2 11/14/16 16:00 98.2 72 18 163/72 (102) 98 11/14/16 12:30 21 11/14/16 07:00 Room Air Intake and Output 11/14/16 11/14/16 11/15/16 08:00 16:00 00:00 Intake Total 120 ml Balance 120 ml Physical Examination Respirations clear to auscultation Cardiac regular without murmur No carotid bruit Abdomen soft No extremity edema No nuchal rigidity Awake and alert Oriented X 3 Speech is clear Conversant and appropriate Follow simple commands well Answers questions appropriately Reasonable judgment and insight Recent and remote memory are intact No evidence of anxiety or depression Pupils are equal and reactive to accommodation. Extra-ocular movements, visual baker to confrontation, facial sensorimotor, tongue, palate, sternocleidomastoid testing, hearing to finger rub testing, and bilateral shoulder shrug are all intact. Sensation is intact to light touch in all extremities Strength normal major flexion and extension groups all extremities Laura's absent bilaterally No ankle clonus Plantar responses absent bilateral Fine motor movements intact upper extremities Lab, Micro, Other Results 11/14/16 CT scan head images reviewed. Stable right frontoparietal parenchymal and subarachnoid hemorrhage. No significant mass effect. Head CT 11/14/16 0000 Signed Impressions: Service Date/Time: Monday, November 14, 2016 08:32 - CONCLUSION: 1. Stable intraparenchymal and extra-axial hemorrhage compared to previous exam of 11/13/16. Fabricio Lara MD Laboratory Tests Test 11/14/16 05:35 Red Blood Count 3.97 MIL/MM3 Creatinine 1.01 MG/DL Calcium Level 8.4 MG/DL Chloride Level 111 MEQ/L Estimat Glomerular Filtration Rate 55 ML/MIN Medical Decision Making Impression and Plan Impression: 1. Stable right frontal-parietal parenchymal and subarachnoid hemorrhage. No significant mass effect. 2. Hypertension Plan: Findings were discussed with the patient Stable for transfer to regular floor from neurosurgery standpoint Discussed with nursing staff Continue close neurologic checks and vital signs Mobilize out of bed as tolerated Increased diet as tolerated Non-chemical DVT prophylaxis Ramsey Rivera MD Nov 14, 2016 18:36
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
[2016-11-15] VITALS: BP 129/60; PULSE 72; RESP 20; TEMP 98.1; O2SAT 96
[2016-11-15] MEDS: CHLORHEXIDINE GLUCONATE 2 % 1 PACK (2 CLOTHS) TOP SCH (03:20)
[2016-11-15 04:00] VITALS: BP 143/66; PULSE 75; RESP 20; TEMP 97.9; O2SAT 96
[2016-11-15] MEDS: hydrALAZINE HCL 25 MG TAB PO SCH (06:03)
[2016-11-15 07:06] LABS: HEMATOCRIT 35.4 % (35.0-46.0); MEAN CELL VOLUME 93.3 FL (80.0-100.0); MEAN CORPUSCULAR HEMOGLOBIN 31.6 PG (27.0-34.0); MEAN CORPUSCULAR HGB CONC 33.8 % (32.0-36.0); PLATELET COUNT 307 TH/MM3 (150-450); RED BLOOD COUNT 3.79 MIL/MM3 (4.00-5.30); RED CELL DISTRIBUTION WIDTH 13.8 % (11.6-17.2); REVIEW FLAG FINAL; WHITE BLOOD COUNT 9.8 TH/MM3 (4.0-11.0)
[2016-11-15 07:48] LABS: BICARBONATE 24.8 MEQ/L (21.0-32.0); POTASSIUM 4.1 MEQ/L (3.5-5.1)
[2016-11-15] MEDS: DOCUSATE SODIUM 50 MG/SENNA 8.6 MG TAB PO SCH ×2 (09:00→21:06)
[2016-11-15 09:05] VITALS: BP 138/65; PULSE 71; RESP 18; TEMP 98.1; O2SAT 96
[2016-11-15] MEDS: METOPROLOL TARTRATE 25 MG TAB PO SCH ×2 (09:28→21:05)
[2016-11-15] MEDS: LISINOPRIL 5 MG TAB PO SCH (09:28)
[2016-11-15] MEDS: FAMOTIDINE 20 MG/2 ML VIAL IV PUSH SCH (09:29)
[2016-11-15] MEDS: SODIUM CHLORIDE 0.9% FLUSH 10 ML FLUSH IV FLUSH SCH ×2 (09:31→21:05)
--- NOTE | 2016-11-15 12:45 | HHI.PR ---
Subjective Subjective Remarks anxious and tearful about not going home today no headaches no cp no sob no fever BP 130s-140s Review of Systems Constitutional Constitutional Remarks 12 point ROS completed, negative except as noted above Vitals/Results Vital Signs Vital Signs Date Time Temp Pulse Resp B/P (MAP) Pulse Ox O2 Delivery O2 Flow Rate FiO2 11/15/16 09:05 98.1 71 18 138/65 (89) 96 11/15/16 04:00 97.9 75 20 143/66 (91) 96 11/15/16 00:00 98.1 72 20 129/60 (83) 96 11/14/16 20:00 98.0 80 20 166/79 (108) 94 11/14/16 16:00 98.2 72 18 163/72 (102) 98 11/14/16 16:00 64 11/14/16 16:00 98.3 62 20 138/88 (105) 97 11/14/16 14:00 78 CBC/BMP: 11/15/16 0649 11/15/16 0649 Lab Results Laboratory Tests Test 11/15/16 06:49 White Blood Count 9.8 TH/MM3 Red Blood Count 3.79 MIL/MM3 Hemoglobin 12.0 GM/DL Hematocrit 35.4 % Mean Corpuscular Volume 93.3 FL Mean Corpuscular Hemoglobin 31.6 PG Mean Corpuscular Hemoglobin Concent 33.8 % Red Cell Distribution Width 13.8 % Platelet Count 307 TH/MM3 Mean Platelet Volume 8.3 FL Blood Urea Nitrogen 16 MG/DL Creatinine 1.05 MG/DL Random Glucose 89 MG/DL Calcium Level 9.3 MG/DL Sodium Level 141 MEQ/L Potassium Level 4.1 MEQ/L Chloride Level 109 MEQ/L Carbon Dioxide Level 24.8 MEQ/L Anion Gap 7 MEQ/L Estimat Glomerular Filtration Rate 52 ML/MIN Physical Exam General General Appearance: Well Developed, Well Nourished, No Acute Distress, Comfortable Eyes Eye Exam: Pupils Equal, Pupils Reactive Ears & Nose Ears & Nose Exam: Nasal Mucosa [place] Throat Throat Exam: Oral Mucosa [place] & Moist Neck Neck Exam: Neck Supple, Trachea Midline Pulmonary Resp Exam: Clear Bilaterally Cardiology CV Exam: Regular, Good Perfusion Gastrointestinal/Abdomen GI Exam: Soft, Non-Tender, Bowel Sounds Present, Non-Distended Musculoskeletal MS Exam: Joints Intact Integumentary Skin Exam: Warm, Dry Extremeties Extremities Exam: No Edema, Pedal Pulses Palpable Neurologic Neuro Exam: Alert, Awake, Oriented, Speech Clear, Moving All Extremities, No Focal Deficits Psychiatric Psych Exam: Appropriate Responses VTE Prophylaxis VTE Prophylaxis Device: SCDs Assessment/Plan Assessment/Plan 1. Status post acute right frontal intraparenchymal hemorrhage possible hypertensive bleed with mild surrounding edema. 2. Status post uncontrolled hypertension. 3. History of gastroesophageal reflux disease. 4. History of radiation colitis / proctitis. 5. Possible chronic kidney disease with glomerular filtration rate is around 55%. Plan: Appreciate neurosurgery and neurology input Control blood pressure-continue Norvasc 5 mg po daily, Lisinopril 10 mg po daily continue Lopressor 12.5 mg po BID BP slowly improving, was elevated yesterday 160s Keep off ASA Creat slightly elevated monitor renal function Continue with Pepcid for GI prophylaxis SCDs for DVT prophylaxis. PT eval BMP in am D/W RN D/W Dr. Soliz D/W pt This patient was seen by myself and Dr. Soliz, this note is written on his behalf. Chuyita Haney Nov 15, 2016 12:45
[2016-11-15] MEDS ORDERED: amLODIPine BESYLATE 5 MG TAB PO ONE (13:00)
[2016-11-15 13:18] VITALS: BP 131/60; PULSE 57; RESP 18; TEMP 98.2; O2SAT 97
[2016-11-15 16:34] VITALS: BP 110/56; PULSE 74; RESP 18; TEMP 98.1; O2SAT 96
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
[2016-11-15 20:41] VITALS: BP 143/65; PULSE 63; RESP 18; TEMP 98.1; O2SAT 96
[2016-11-15] MEDS: FAMOTIDINE 20 MG TAB PO SCH (21:05)
[2016-11-16 02:07] VITALS: BP 134/63; PULSE 71; RESP 18; TEMP 97.7; O2SAT 95
[2016-11-16] MEDS: CHLORHEXIDINE GLUCONATE 2 % 1 PACK (2 CLOTHS) TOP SCH (04:03)
[2016-11-16 05:39] VITALS: BP 133/63; PULSE 70; RESP 20; TEMP 97.8; O2SAT 93
[2016-11-16 06:17] LABS: HEMATOCRIT 35.1 % (35.0-46.0); MEAN CELL VOLUME 93.9 FL (80.0-100.0); MEAN CORPUSCULAR HEMOGLOBIN 31.1 PG (27.0-34.0); MEAN CORPUSCULAR HGB CONC 33.1 % (32.0-36.0); PLATELET COUNT 293 TH/MM3 (150-450); RED BLOOD COUNT 3.74 MIL/MM3 (4.00-5.30); RED CELL DISTRIBUTION WIDTH 13.8 % (11.6-17.2); REVIEW FLAG FINAL; WHITE BLOOD COUNT 8.4 TH/MM3 (4.0-11.0)
[2016-11-16 06:41] LABS: POTASSIUM 4.2 MEQ/L (3.5-5.1)
[2016-11-16 06:42] LABS: HDL CHOLESTEROL 51.2 MG/DL (40.0-60.0)
[2016-11-16 08:23] VITALS: BP 131/63; PULSE 55; RESP 18; TEMP 97.6; O2SAT 94
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
[2016-11-16] MEDS ORDERED: LISINOPRIL 10 MG TAB PO SCH (09:00)
[2016-11-16] MEDS ORDERED: amLODIPine BESYLATE 5 MG TAB PO SCH (09:00)
[2016-11-16] MEDS: SODIUM CHLORIDE 0.9% FLUSH 10 ML FLUSH IV FLUSH SCH (09:00)
[2016-11-16] MEDS: METOPROLOL TARTRATE 25 MG TAB PO SCH (09:04)
[2016-11-16] MEDS: FAMOTIDINE 20 MG TAB PO SCH (09:05)
[2016-11-16] MEDS: DOCUSATE SODIUM 50 MG/SENNA 8.6 MG TAB PO SCH (09:05)
[2016-11-16] MEDS ORDERED: LISI10TA3 PO (10:02)
[2016-11-16] MEDS ORDERED: AMLO5 PO (10:02)
[2016-11-16] MEDS ORDERED: METO25TA3 PO (10:02)
--- NOTE | 2016-11-16 10:02 | HHI.DCPOC ---
Discharge Care Plan Diagnosis: (1) Intraparenchymal hemorrhage of brain (2) HTN (hypertension) Your Health Problems Are: Difficulty with ADL Goals to Promote Your Health * To prevent worsening of your condition and complications * To maintain your health at the optimal level Directions to Meet Your Goals Take your medications as prescribed Follow your dietary instruction Follow activity as directed Keep your appointments as scheduled Take your immunizations and boosters as scheduled If your symptoms worsen call your PCP, if no PCP go to Urgent Care Center or Emergency Room Smoking is Dangerous to Your Health. Avoid second hand smoke Call the 24-hour hour crisis hotline for domestic abuse at Chuyita Haney Nov 16, 2016 10:02
--- NOTE | 2016-11-16 10:04 | HHI.DS ---
Discharge Summary Admission Date Nov 13, 2016 at 11:02 Discharge Date: Nov 16, 2016 Admitting Diagnosis Intraparenchymal bleed (1) Intraparenchymal hemorrhage of brain ICD Codes: I61.9 - Nontraumatic intracerebral hemorrhage, unspecified Status: Acute (2) HTN (hypertension) ICD Codes: I10 - Essential (primary) hypertension Status: Acute (3) Renal insufficiency ICD Codes: N28.9 - Disorder of kidney and ureter, unspecified Status: Chronic (4) GERD (gastroesophageal reflux disease) ICD Codes: K21.9 - Gastro-esophageal reflux disease without esophagitis Status: Chronic (5) History of proctitis ICD Codes: Z87.19 - Personal history of other diseases of the digestive system Status: Chronic CBC/BMP: 11/16/16 0559 11/16/16 0559 Significant Findings Laboratory Tests Test 11/13/16 10:40 11/13/16 18:25 11/14/16 05:35 11/15/16 06:49 Urine Occult Blood SMALL (NEG) Urine Leukocyte Esterase TRACE (NEG) Red Blood Count 3.97 MIL/MM3 (4.00-5.30) 3.79 MIL/MM3 (4.00-5.30) Creatinine 1.01 MG/DL (0.50-1.00) 1.05 MG/DL (0.50-1.00) Calcium Level 8.4 MG/DL (8.5-10.1) Chloride Level 111 MEQ/L (98-107) 109 MEQ/L (98-107) Estimat Glomerular Filtration Rate 55 ML/MIN (>89) 52 ML/MIN (>89) Test 11/16/16 05:59 Red Blood Count 3.74 MIL/MM3 (4.00-5.30) Blood Urea Nitrogen 20 MG/DL (7-18) Creatinine 1.15 MG/DL (0.50-1.00) Chloride Level 110 MEQ/L (98-107) Estimat Glomerular Filtration Rate 47 ML/MIN (>89) Imaging Last Impressions Head CT 11/14/16 0000 Signed Impressions: Service Date/Time: Monday, November 14, 2016 08:32 - CONCLUSION: 1. Stable intraparenchymal and extra-axial hemorrhage compared to previous exam of 11/13/16. Fabricio Lara MD Chest X-Ray 11/13/16 0000 Signed Impressions: Service Date/Time: Sunday, November 13, 2016 10:46 - CONCLUSION: 1. Chronic interstitial changes in the lung bases. 2. No acute abnormality identified. Fabricio Lara MD Brain MRI 11/13/16 0000 Signed Impressions: Service Date/Time: Sunday, November 13, 2016 15:42 - CONCLUSION: Right frontal hematoma with a small amount of surrounding edema and subarachnoid hemorrhage. Omar Reno MD Hospital Course This is a very pleasant 66-year-old female with prior history of borderline hypertension, gastroesophageal reflux disease and radiation induced proctitis. She follows with Dr. Fab Reynolds. She was in her usual state of health until recently when she developed numbness over her left deltoid area associated with some numbness on the left side of her face. She presented to [facility] where a CT head showed evidence of a focal right frontal intraparenchymal hemorrhage. Upon arrival her blood pressure was 202 systolic. She was in sinus rhythm. She was taking aspirin at home. She was transferred [facility] and went into intensive care service for the treatment of acute intracerebral hemorrhage. She was seen by neurosurgeon Dr. Ramsey Rivera who found that the patient likely had hypertensive bleed. The patient was initially placed on Cardene drip for blood pressure control. Her blood pressure stabilized. She went off Cardene drip and put on PO antihypertensive agents. She was feeling better. She denied headache, denied nausea or vomiting. Denied chest pain, shortness of breath, cough or sputum production. She had chronic frequent bowel movement which has not been changed recently. She had chronic discomfort and sensitivity and both lower extremities. She also suffers from indigestion from gastroesophageal reflux disease. IMAGING CT on admission is noted in the body of my note. MRA of the brain was done November 13, 2016 and showed right frontal hematoma with a small amount of surrounding edema and subarachnoid hemorrhage. Repeat CT head showed stable intraparenchymal and extra-axial hemorrhage compared to previous exam. Chest x-ray shows chronic interstitial changes seen in the lung bases. No acute infiltrate or effusion seen. 12-lead EKG shows sinus rhythm without any acute findings. LABORATORY DATA White count 9.7, hemoglobin 12.4, hematocrit 37.0, platelet count of 313. MCV of 93.3. Sodium 144, potassium 3.9, chloride 101, bicarbonate 15, BUN ____, BUN of 15, creatinine 1.01, glucose 99, calcium 8.4, magnesium 1.9. LFTs unremarkable. Total protein 7.6, albumin 3.5. Urinalysis shows straw colored, clear urine. PH 6.0, specific gravity 1.005. Occult blood is small. Leukocyte esterase trace. Diagnosed with: 1. Status post acute right frontal intraparenchymal hemorrhage possible hypertensive bleed with mild surrounding edema. 2. Status post uncontrolled hypertension. 3. History of gastroesophageal reflux disease. 4. History of radiation colitis / proctitis. 5. Possible chronic kidney disease with glomerular filtration rate is around 55%. During the course of the hospitalization, the following took place. Pt Condition on Discharge: Stable Discharge Disposition: Discharge Home Discharge Instructions DIET: Follow Instructions for: Heart Healthy Diet Activities you can perform: Weight Bearing as [place] Activities to Avoid: Concussion Sports, Contact Sports Follow up Referrals: PCP Follow-up New Medications: Amlodipine (Norvasc) 5 Mg Tab 5 MG PO DAILY for Blood Pressure Management, #30 TAB 1 Refill Lisinopril (Lisinopril) 10 Mg Tab 10 MG PO DAILY for Blood Pressure Management, #30 TAB 1 Refill Metoprolol Tartrate (Metoprolol Tartrate) 25 Mg Tab 12.5 MG PO Q12HR for Blood Pressure Management, #30 TAB 1 Refill Continued Medications: Ranitidine (Zantac) 150 Mg Tab 150 MG PO BID for Reduce Stomach Acid, #60 TAB 0 Refills Discontinued Medications: Aspirin (Aspirin Low Dose) 81 Mg Chew 81 MG CHEW DAILY, TAB 0 Refills Chuyita Haney Nov 16, 2016 10:04
--- NOTE | 2016-11-16 10:10 | HHI.PR ---
Subjective Subjective Remarks sitting up in chair bp 130s stable no headache no dizziness no cp no sob cleared for dc by neurology and neurosurgery Dr. Rivera to discuss s/s to look for pt. had many questions, answered in detail Review of Systems Constitutional Constitutional Remarks 12 point ROS completed, negative except as noted above Vitals/Results Vital Signs Vital Signs Date Time Temp Pulse Resp B/P (MAP) Pulse Ox O2 Delivery O2 Flow Rate FiO2 11/16/16 08:23 97.6 55 18 131/63 (85) 94 11/16/16 05:39 97.8 70 20 133/63 (86) 93 11/16/16 02:07 97.7 71 18 134/63 (86) 95 11/15/16 20:41 98.1 63 18 143/65 (91) 96 11/15/16 16:34 98.1 74 18 110/56 (74) 96 11/15/16 13:18 98.2 57 18 131/60 (83) 97 CBC/BMP: 11/16/16 0559 11/16/16 0559 Lab Results Laboratory Tests Test 11/16/16 05:59 White Blood Count 8.4 TH/MM3 Red Blood Count 3.74 MIL/MM3 Hemoglobin 11.6 GM/DL Hematocrit 35.1 % Mean Corpuscular Volume 93.9 FL Mean Corpuscular Hemoglobin 31.1 PG Mean Corpuscular Hemoglobin Concent 33.1 % Red Cell Distribution Width 13.8 % Platelet Count 293 TH/MM3 Mean Platelet Volume 8.6 FL Blood Urea Nitrogen 20 MG/DL Creatinine 1.15 MG/DL Random Glucose 97 MG/DL Calcium Level 9.1 MG/DL Sodium Level 142 MEQ/L Potassium Level 4.2 MEQ/L Chloride Level 110 MEQ/L Carbon Dioxide Level 25.0 MEQ/L Anion Gap 7 MEQ/L Estimat Glomerular Filtration Rate 47 ML/MIN Triglycerides Level 114 MG/DL Cholesterol Level 163 MG/DL LDL Cholesterol 89 MG/DL HDL Cholesterol 51.2 MG/DL Cholesterol/HDL Ratio 3.18 RATIO Physical Exam General General Appearance: Well Developed, Well Nourished, No Acute Distress, Comfortable Eyes Eye Exam: Pupils Equal, Pupils Reactive Ears & Nose Ears & Nose Exam: Nasal Mucosa [place] Throat Throat Exam: Oral Mucosa [place] & Moist Neck Neck Exam: Neck Supple, Trachea Midline Pulmonary Resp Exam: Clear Bilaterally Cardiology CV Exam: Regular, Good Perfusion Gastrointestinal/Abdomen GI Exam: Soft, Non-Tender, Bowel Sounds Present, Non-Distended Musculoskeletal MS Exam: Joints Intact Integumentary Skin Exam: Warm, Dry Extremeties Extremities Exam: No Edema, Pedal Pulses Palpable Neurologic Neuro Exam: Alert, Awake, Oriented, Speech Clear, Moving All Extremities, No Focal Deficits Psychiatric Psych Exam: Appropriate Responses VTE Prophylaxis VTE Prophylaxis Device: SCDs Assessment/Plan Assessment/Plan 1. Status post acute right frontal intraparenchymal hemorrhage possible hypertensive bleed with mild surrounding edema. 2. Status post uncontrolled hypertension. 3. History of gastroesophageal reflux disease. 4. History of radiation colitis / proctitis. 5. Possible chronic kidney disease with glomerular filtration rate is around 55%. Plan: Appreciate neurosurgery and neurology input-both cleared for dc Dr. Rivera informed pt. no need for follow up but monitor for presence of headache , dizziness as a small chance of subdural hematoma. Control blood pressure-continue Norvasc 5 mg po daily, Lisinopril 10 mg po daily continue Lopressor 12.5 mg po BID BP improved, 130s. Keep off ASA, NSAIDs for at least 6-8 weeks per neurosurgery recommendation Creat slightly elevated monitor renal function d/w pt. inc. PO intake, doesn't drink a lot of water lab slip given for BMP in 5 days with results to PCP Continue with Pepcid for GI prophylaxis SCDs for DVT prophylaxis. PT eval -ok. ambulatory. Stable for dc, no headache, no neuro deficits. Diet heart healthy, inc fluid intake Activity-as tolerated BMP in 5 days f/u PCP next week D/W RN D/W Dr. Hill D/W pt This patient was seen by myself and Dr. Hill, this note is written on his behalf. Discharge Minutes: 45 Chuyita Haney Nov 16, 2016 10:10
== END 2016-11-16 14:07 | disposition home or self-care (01) | DRG 64 ==
LOC: PHED 09:55 → PHEDA 11:02 → N03B 13:47 → N05B 11-14 17:38
PROVIDERS: ADMIT Internal Medicine Critical Care Medicine; ATTEND Internal Medicine Critical Care Medicine
DX: I61.1 Nontraumatic intracerebral hemorrhage in hemisphere, cortical (principal); G93.6 Cerebral edema; K21.9 Gastro-esophageal reflux disease without esophagitis; E11.9 Type 2 diabetes mellitus without complications; I10 Essential (primary) hypertension; I60.9 Nontraumatic subarachnoid hemorrhage, unspecified; N28.9 Disorder of kidney and ureter, unspecified; Z85.42 Personal history of malignant neoplasm of other parts of uterus; Z87.891 Personal history of nicotine dependence; Z92.3 Personal history of irradiation
CPT/HCPCS: 70450; 70553; 71010; 76937; 80048; 80061; 80076; 81001; 82550; 82948; 83735; 84484; 85025; 85027; 85610; 85730; 86850; 86900; 86901; 87641; 93005; 94150; 94640; 94667; 94668; 96365; A9579; J0360; J2405; J7030; J7050